=== PATIENT | female | born 1975 | race Caucasian/White ===

== ENCOUNTER 2017-02-28 12:14 | Inpatient (IN) | payer SELFPAY ==
[2017-02-28] MEDS ORDERED: LIDOCAINE HCL/PF 1% 30 ML VIAL SUBCUT PRN ×3 (13:00→20:59)
[2017-02-28] MEDS ORDERED: FENTANYL 100 MCG/2 ML VIAL IV PRN ×5 (13:00→20:59)
[2017-02-28] MEDS ORDERED: FENTANYL 100 MCG/2 ML VIAL IV ONE ×3 (13:00→20:59)
[2017-02-28] MEDS ORDERED: ONDANSETRON HCL 4 MG/2 ML VIAL IV PRN ×3 (13:00→20:59)
[2017-02-28] MEDS ORDERED: HOME MEDICATION LIST NEEDED 1 EA EACH MC ONE (13:00)
[2017-02-28] MEDS ORDERED: MISOPROSTOL 200 MCG TABLET PO PRN ×6 (13:00→20:59)
[2017-02-28] MEDS ORDERED: TERBUTALINE SULFATE 1 MG/ML VIAL SQ PRN ×3 (13:00→20:59)
[2017-02-28] MEDS: MISOPROSTOL 25 MCG CAPSULE VAG SCH ×2 (14:00→17:07)
[2017-02-28] MEDS ORDERED: PENICILLIN G POTASSIUM 5 MMU in NORMAL SALINE 100 ML IV ONE ×3 (14:00→20:59)
[2017-02-28] MEDS: PENICILLIN POTASSIUM IV ONE ×2 (14:09→14:10)
[2017-02-28] MEDS: NORMAL SALINE MINI IV ONE ×2 (14:09→14:10)
[2017-02-28] MEDS ORDERED: LACTATED RINGERS 1,000 ML IV ONE (14:16)
--- NOTE | 2017-02-28 14:18 | PROGRESS NOTE:Antepartum ---
Assessment and Plan - Date of Encounter Date of Encounter: 02/28/17 (1) Supervision of high risk elderly primigravida in third trimester Status: Acute Assessment and plan: Pt with excellent blood sugars at home. Today's pending. I do not anticipate glucose issues. BP at baseline so no signs of preeclampsia. Cervix unfavorable and CAT I strip so will pursue Cytotec induction. Current Visit: Yes (2) Gestational diabetes Status: Acute Current Visit: Yes (3) Uterine fibroids affecting in third trimester Status: Acute Current Visit: Yes - Time Spent With Patient Total time spent with greater than 50% in coordination of care (as documented) at patient's floor/unit and/or counseling patient: OWNER MANAGER: Antepartum PN Subj - Subjective Interval history: 41 yo here at 39 weeks for cytotec induction due to gestational DM controlled with single pm dose of Glyburide. She has been followed closely with perinatology due multiple risk factors for IUGR including significant fibroids making growth assessment impossible on routine U/S equipment so followed at [facility] perinatology. Risk Factors include AMA, Multiple fibroids, Maternal smoking and living at 9000 feet. continued to plot at 11-14% and no evidence of IUGR. They did not forsee fibroids interfering with mode of delivery. She is here today for induction. See dictated H/P. Patient reports: appetite normal, voiding normally, pain well controlled Antepartum ROS: movement normal, no vaginal bleeding, no contractions, no loss of fluid, no abdominal pain, no headache, no shortness of breath, no swelling, no visual changes OWNER MANAGER: Antepartum PN Obj Exam - Latest Vital Signs and I&O Latest Vital Signs/I&O: Intake & Output 02/27/17 02/28/17 02/28/17 17:59 05:59 17:59 Weight 101.605 kg - Exam Heart Monitor: category I Lungs: Bilateral: normal Heart Rhythm: Present: regular Cervical Dilatation Degree: 1 Cervical Effacement Percentage: 50 Station: -2
[2017-02-28] MEDS ORDERED: LACTATED RINGERS 1,000 ML IV SCH ×5 (15:00→20:59)
[2017-02-28 15:02] LABS: HEMATOCRIT 40.6 % (36.0-48.0); HEMOGLOBIN 13.9 g/dL (12.0-16.0); RED BLOOD COUNT 4.55 X 10^6uL (4.20-6.10); WHITE BLOOD COUNT 8.2 X 10^3uL (3.9-10.7)
[2017-02-28 15:03] LABS: BASOPHILS 0.4 % (0.0-2.0); EOSINOPHILS# 0.1 X 10^3uL (0.0-0.4); LYMPHOCYTES 14.5 % (20.0-40.0); LYMPHOCYTES# 1.2 X 10^3uL (0.8-3.8); MEAN CORPUS. HGB CONCENTRATION 34.2 g/dL (32.0-36.0); MEAN CORPUSCULAR HEMOGLOBIN 30.6 pg (29.0-35.0); MEAN PLATELET VOLUME 9.3 fL (7.4-10.4); MONOCYTES 6.3 % (2.0-10.0); MONOCYTES# 0.5 X 10^3uL (0.2-1.0); NEUTROPHILS 77.8 % (54.0-75.0); NEUTROPHILS# 6.4 X 10^3uL (2.6-6.7); PLATELET COUNT 151 X 10^3uL (130-440); RED CELL DISTRIBUTION WIDTH 13.5 % (11.5-14.5)
[2017-02-28 15:55] LABS: ABO GROUP TYPE B; ANTIBODY SCREEN NEGATIVE; RH TYPE POSITIVE
[2017-02-28 16:02] LABS: ALBUMIN 3.6 g/dL (3.5-5.0); ALKALINE PHOSPHATASE 132 U/L (38-126); ALT 25 U/L (9-52); AST 18 U/L (14-36); BILIRUBIN, TOTAL 0.4 mg/dL (0.2-1.3); BLOOD UREA NITROGEN 9 mg/dL (7-17); CALCIUM 8.9 mg/dL (8.4-10.2); CHLORIDE 109 mmol/L (98-107); EST GLOMERULAR FILTRATION RATE > 60 mL/min; GLUCOSE 76 mg/dL (70-100); POTASSIUM 3.9 mmol/L (3.5-5.1); SODIUM 138 mmol/L (137-145); TOTAL PROTEIN 7.3 g/dL (6.3-8.2)
[2017-02-28] MEDS ORDERED: FAMOTIDINE 20 MG TABLET ONE (17:51)
[2017-02-28] MEDS ORDERED: FAMOTIDINE IN SALINE, ISO-OSM 20 MG/50 ML PIGGYBACK IV ONE (17:52)
[2017-02-28] MEDS ORDERED: PENICILLIN G POTASSIUM 2.5 MMU in NORMAL SALINE 100 ML IV SCH ×2 (18:00→22:00)
[2017-02-28] MEDS ORDERED: EPHEDrine SULFATE 50 MG/ML VIAL ONE (18:02)
[2017-02-28] MEDS ORDERED: OXYTOCIN 10 UNITS/ML VIAL ONE ×2 (18:02→19:09)
[2017-02-28] MEDS ORDERED: PHENYLEPHRINE HCL 10,000 MCG/ML VIAL ONE (18:02)
[2017-02-28] MEDS ORDERED: NORMAL SALINE FLUSH 20 ML ONE (18:02)
[2017-02-28] MEDS ORDERED: FENTANYL 100 MCG/2 ML VIAL ONE (18:03)
[2017-02-28] MEDS ORDERED: ceFAZolin 1 GM/10 ML VIAL ONE (18:03)
[2017-02-28] MEDS ORDERED: MORPHINE SULFATE/PF 10 MG/10 ML VIAL ONE (18:03)
[2017-02-28] MEDS ORDERED: HOME MEDICATION LIST NEEDED 1 EA EACH MISC ONE ×2 (18:30→20:59)
[2017-02-28] MEDS ORDERED: NALOXONE HCL 0.4 MG/ML VIAL IV PRN ×6 (18:30→20:59)
[2017-02-28] MEDS ORDERED: NALBUPHINE HCL 10 MG/ML AMP IV PRN ×2 (18:30→20:59)
[2017-02-28] MEDS ORDERED: DIPHENHYDRAMINE 50 MG/ML VIAL IV PRN ×2 (18:30→20:59)
[2017-02-28] MEDS ORDERED: MORPHINE SULFATE 10 MG/ML SYR IV PRN ×2 (18:30→20:59)
[2017-02-28] MEDS ORDERED: DIPHENHYDRAMINE 25 MG CAPSULE PO PRN ×2 (18:30→20:59)
[2017-02-28] MEDS ORDERED: KETOROLAC TROMETHAMINE 30 MG/ML VIAL IV PRN ×2 (18:30→20:59)
[2017-02-28] MEDS ORDERED: MISOPROSTOL 25 MCG CAPSULE VAGINALLY SCH (19:00)
[2017-02-28] MEDS ORDERED: ONDANSETRON HCL 4 MG/2 ML VIAL ONE (19:06)
--- NOTE | 2017-02-28 20:12 | OPERATIVE NOTE: C-Section ---
- Operative Report Date of procedure: 02/28/17 Pre-Op Diagnosis: Non reasurring FHT's, Gest DM, AMA, TOB USE, Fibroids Post-op diagnosis: same Procedure: LTCS with myomectomy Anesthesia Type: Spinal Start Up Specialist: CLARISSA HARTMAN Estimated Blood Loss: 700 Pathology: sent Sponge and instrument counts: correct X-ray taken: No Estimated Gestational Age (weeks): 39 Delivery Presentation: vertex Heart Monitor: category III Intrapartum Events: extend. bradycardia (70-90 on doppler for 9 min with occasional increase to 110-120 for 3 min then back to 70 ) Amniotic Fluid: meconium, AROM (while placing FSE) Cord Vessel Description: 3 Vessels Nuchal Cord # of Loops: 0 (at shoulder) Cord clamped: Yes Cord blood obtained: Yes at 1 minute: 7 at 5 minutes: 9 Gender: Female arterial ph: 7.2 venous ph: 7.2 Delivery Complications: Present: other (4 cm fibroid in Lower uterine segment removed) Narrative: 41 yo was here for elective induction She started with CAT I strip. She received her first dose of Cytotec and had favorable change to 2 cm and 80%. I had just placed her second dose of Cytotec when I noted a little bit of bleeding on my glove. It was not significant. Within about 5 minutes she had a significant bradycardia variable down into the 90s for 2 minutes. She was repositioned and This recovered. She had a second variable down to the 90s again. This only lasted about a minute. Heart tones recovered 130-150 with good variability. And within 3 minutes she had a deceleration that went down to the 90s and we lost heart tones on the monitor. We could Doppler them between 60s and 90s. I placed a scalp electrode which was very difficult as she was only 2 cm she was still very high. We had heart tones that came back 90s-120s and this was after a period of approximately 9 minutes. Again she had a second long prolonged deceleration into the 90s and was subsequently taken to the operating room. By the time he got to the OR where she recovered heart rate was 120s-130s with good variability. She did have some variables but they all lasted about a minute or less with good recovery. In the operating room she received a spinal anesthetic. heart tones were as mentioned above. They did not drop with spinal anesthesia and she did not have any episodes of hypotension. Timeout was taken correctly identifying the patient, her allergies (none) and procedure. A Nielsen catheter was placed. She was prepped and draped in sterile fashion. The internal scalp electrode was discontinued. Her was brought into the room. A Pfannenstiel skin incision was made. This was taken down to the fascia with a combination of cautery and blunt technique. It was extended using blunt technique to the apices. The fascia was then entered in the midline sharply approximately 3 cm. It was extended in a blunt technique towards the apices. The rectus muscles were also entered bluntly and along their diaphysis. The Peritoneum was then entered bluntly. An Esa O-Ring was introduced into the abdominal wound for exposure. The uterus was in the midline position with fibroids noted. There is approximately a 4-5 cm fibroid located along the left lower uterine segment just above the incision. The uterus was entered with a midline incision that was then extended caudally and cephalad using muscle pulling technique. The infant was in a vertex position. Her head was lifted from the pelvis and then she was delivered without difficulty. The cord was clamped twice and the infant was handed off to the receipt and report clerk who was in attendance at the delivery. Cord gas segment was taken. Gases were 7.2 and 7.22. Cord blood was also taken. The placenta was then delivered via manual massage. A moist lap was used to evacuate the contents of the uterus. Salazar clamps were then taken to obtain temporary hemostasis. The lower fibroid was then removed by Dr. Hartman. Hemostasis was achieved with 2 [id number] 0 chromic sutures. The uterine incision was then closed with a running locking 0 chromic suture. A second umbricating suture that also included the myomectomy site. There was only scant bleeding from the area of the myomectomy and the wound was reinforced with a figure-of- eight suture. Excellent hemostasis resulted. The abdomen was then irrigated with warm saline. The wound was inspected again and there was no evidence of bleeding. I palpated 5 other uterine fibroids on the anterior superior and posterior segment. These were all serosal and did not interfere with our procedure. The Shelley O ring was removed. The peritoneum and rectus muscles were closed with 5 simple interrupted 0 chromic sutures. The fascia was closed with a 2-0 PDS for approximately 4 sutures when I realized that was not the right suture. I then stopped in continue the rest of the closure with an 0 PDS suture in a running nonlocking fashion. The fascia was inspected and was free of defects. The subcutaneous tissue was again irrigated. The skin was closed with a running 4-0 Monocryl suture in a subcuticular fashion. The wound was reinforced with tincture of benzoin and Steri-Strips. A pressure dressing consisting of Telfa, 2 ABDs, and Hypafix tape was then applied. All counts were correct. Patient was taken to the recovery room in excellent condition.
[2017-02-28] MEDS ORDERED: LANOLIN CREAM 1 APP/7 GM TUBE TOPICAL PRN (20:59)
[2017-02-28] MEDS ORDERED: SIMETHICONE CHEW 80 MG TABLET PO PRN (20:59)
[2017-02-28] MEDS ORDERED: MAGNESIUM HYDROXIDE 30 ML UDC PO PRN (21:00)
[2017-03-01] MEDS: KETOROLAC TROMETHAMINE 30 MG/ML VIAL IV PRN ×3 (00:29→12:32)
[2017-03-01] MEDS: LACTATED RINGERS 1,000 ML IV SCH ×2 (00:30→09:15)
[2017-03-01] MEDS: MISOPROSTOL 25 MCG CAPSULE VAGINALLY SCH ×3 (00:35→06:52)
[2017-03-01] MEDS: ACETAMINOPHEN 1,000 MG/100 ML VIAL IV SCH ×3 (00:35→10:07)
[2017-03-01] MEDS: DOCUSATE SODIUM 100 MG CAPSULE PO SCH ×3 (00:35→21:37)
[2017-03-01] MEDS: PENICILLIN G POTASSIUM 2.5 MMU in NORMAL SALINE 100 ML IV SCH ×2 (03:53→06:52)
[2017-03-01 07:41] LABS: HEMATOCRIT 39.2 % (36.0-48.0); HEMOGLOBIN 13.1 g/dL (12.0-16.0); RED BLOOD COUNT 4.38 X 10^6uL (4.20-6.10); WHITE BLOOD COUNT 9.9 X 10^3uL (3.9-10.7)
[2017-03-01 07:42] LABS: BASOPHILS 0.4 % (0.0-2.0); EOSINOPHILS 1.3 % (0.0-6.0); EOSINOPHILS# 0.1 X 10^3uL (0.0-0.4); LYMPHOCYTES 9.8 % (20.0-40.0); MEAN CORPUS. HGB CONCENTRATION 33.4 g/dL (32.0-36.0); MONOCYTES 5.8 % (2.0-10.0); MONOCYTES# 0.6 X 10^3uL (0.2-1.0); NEUTROPHILS 82.7 % (54.0-75.0); NEUTROPHILS# 8.2 X 10^3uL (2.6-6.7); RED CELL DISTRIBUTION WIDTH 13.6 % (11.5-14.5)
--- NOTE | 2017-03-01 08:24 | PROGRESS NOTE: GYN Post-op ---
Assessment and Plan - Date of Encounter Date of Encounter: 03/01/17 (1) Supervision of high risk elderly primigravida in third trimester Status: Acute Assessment and plan: POD # LTCS for prolonged bradycardia. Doing well. Routine LTCS care. Post-op H/H 13.1/39. Continue IVF x 1 ltr. Today will remove Nielsen and ambulate. Shower when steady. Mom bottle feeding. Current Visit: Yes (2) Gestational diabetes Status: Acute Assessment and plan: Pt with excellent blood sugars at home. 91 on admit. Controlled with diet and single dose of Glyburide 1.25 mg at pm. She had a normal A1c at 28 weeks so expect resolution. D/C glyburide. Recheck FBS in am Current Visit: Yes (3) Uterine fibroids affecting in third trimester Status: Acute Current Visit: Yes - Time Spent With Patient Total time spent with greater than 50% in coordination of care (as documented) at patient's floor/unit and/or counseling patient: HOME AIDE: Post-op Note Subjective Interval History: 41 yo here at 39 weeks for cytotec induction due to gestational DM controlled with single pm dose of Glyburide. She has been followed closely with perinatology due multiple risk factors for IUGR including significant fibroids making growth assessment impossible on routine U/S equipment so followed at [facility] perinatology. Risk Factors include AMA, Multiple fibroids, Maternal smoking and living at 9000 feet. continued to plot at 11-14% and no evidence of IUGR. They did not forsee fibroids interfering with mode of delivery. Baby had significant bradycardia at 2-3 cm so delivered via LTCS. Postoperatively, Mom doing well. Pain controlled. Mom is formula feeding. No flatus yet. Tolerating reg diet w/o nausea. Post-op Day: 1 Patient reports: appetite normal, pain well controlled, no nausea, no flatus HOME AIDE: Post-op Note Objective - Latest Vital Signs and I&O Latest Vital Signs/I&O: Vital Signs Temp 36.0 C L 03/01/17 07:57 Pulse 78 03/01/17 07:57 Resp 20 03/01/17 07:57 BP 117/70 03/01/17 07:57 Pulse Ox 92 03/01/17 07:57 Intake & Output 02/28/17 03/01/17 03/01/17 17:59 05:59 17:59 Intake Total 4135 Output Total 1050 Balance 3085 Weight 101.605 kg 101.605 kg Intake: IV 2750 Right Forearm 2750 Oral 1385 Output: Urine 1050 Uretheral (Nielsen) 400 Other: Urine Appearance Clear Clear Clear Urine Color Yellow Yellow Yellow Straw Uretheral (Nielsen) Yellow Voiding Method Toilet Indwelling Catheter Indwelling Catheter - Exam Lungs: Bilateral: normal Heart Rhythm: Present: regular Abdomen: Present: soft Incision: Present: dressed (dry) - Lab Labs: Laboratory Last Values WBC 9.9 X 10^3uL (3.9-10.7) 03/01/17 07:15 RBC 4.38 X 10^6uL (4.20-6.10) 03/01/17 07:15 Hgb 13.1 g/dL (12.0-16.0) 03/01/17 07:15 Hct 39.2 % (36.0-48.0) 03/01/17 07:15 MCV 90.0 fL (80.0-100.0) 03/01/17 07:15 MCH 30.0 pg (29.0-35.0) 03/01/17 07:15 MCHC 33.4 g/dL (32.0-36.0) 03/01/17 07:15 RDW 13.6 % (11.5-14.5) 03/01/17 07:15 Plt Count 108 X 10^3uL (130-440) L 03/01/17 07:15 MPV 9.0 fL (7.4-10.4) 03/01/17 07:15 Neutrophils % 82.7 % (54.0-75.0) H 03/01/17 07:15 Lymphocytes % 9.8 % (20.0-40.0) L 03/01/17 07:15 Eosinophils % 1.3 % (0.0-6.0) 03/01/17 07:15 Basophils % 0.4 % (0.0-2.0) 03/01/17 07:15 Neutrophils # 8.2 X 10^3uL (2.6-6.7) H 03/01/17 07:15 Lymphocytes # 1.0 X 10^3uL (0.8-3.8) 03/01/17 07:15 Monocytes 5.8 % (2.0-10.0) 03/01/17 07:15 Monocytes # 0.6 X 10^3uL (0.2-1.0) 03/01/17 07:15 Eosinophils # 0.1 X 10^3uL (0.0-0.4) 03/01/17 07:15 Basophils # 0.0 X 10^3uL (0.0-0.1) 03/01/17 07:15 Sodium 138 mmol/L (137-145) 02/28/17 13:30 Potassium 3.9 mmol/L (3.5-5.1) 02/28/17 13:30 Chloride 109 mmol/L (98-107) H 02/28/17 13:30 Carbon Dioxide 19 mmol/L (22-30) L 02/28/17 13:30 BUN 9 mg/dL (7-17) 02/28/17 13:30 Creatinine 0.5 mg/dL (0.5-1.0) 02/28/17 13:30 GFR Calculation > 60 mL/min 02/28/17 13:30 Glucose 76 mg/dL (70-100) 02/28/17 13:30 Calcium 8.9 mg/dL (8.4-10.2) 02/28/17 13:30 Total Bilirubin 0.4 mg/dL (0.2-1.3) 02/28/17 13:30 AST 18 U/L (14-36) 02/28/17 13:30 ALT 25 U/L (9-52) 02/28/17 13:30 Alkaline Phosphatase 132 U/L (38-126) H 02/28/17 13:30 Total Protein 7.3 g/dL (6.3-8.2) 02/28/17 13:30 Albumin 3.6 g/dL (3.5-5.0) 02/28/17 13:30 Albumin/Globulin Ratio 1.0 02/28/17 13:30 ABO Group Type b 02/28/17 13:30 Rh Factor Positive 02/28/17 13:30 Antibody Screen Negative 02/28/17 13:30 (2) Gestational diabetes Qualifiers: Gestational diabetes mellitus control: oral hypoglycemic-controlled Trimester : third trimester Qualified Code(s): O24.415 - Gestational diabetes mellitus in , controlled by oral hypoglycemic drugs
[2017-03-01 10:04] VITALS: RESP 18
[2017-03-01] MEDS ORDERED: ACETAMINOPHEN 1,000 MG/100 ML VIAL IV SCH (12:30)
[2017-03-01] MEDS: IBUPROFEN 600 MG TABLET PO PRN (18:01)
[2017-03-02] MEDS: IBUPROFEN 600 MG TABLET PO PRN ×3 (00:37→11:54)
[2017-03-02] MEDS: DOCUSATE SODIUM 100 MG CAPSULE PO SCH (09:02)
[2017-03-02 09:26] VITALS: BP 141/81; PULSE 72; TEMP 97; O2SAT 92
--- NOTE | 2017-03-02 09:34 | DC SUMMARY: Obstetrical/GYN ---
Discharge Summary: Surg/OB Provider: Date of Admission: 02/28/17 Admitting Provider: CRISTNIA MC MD Attending Provider: CRISTINA MC MD Discharging Provider: CLARISSA KEMP MD Primary Care Provider: Discharge Date: 03/02/17 Hospital Course: Ms. CONWAY is a 41 year old female here at term for Cytotec induction due to gestational DM controlled with single pm dose of Glyburide. She has been followed closely with perinatology due multiple risk factors for IUGR including significant fibroids making growth assessment impossible on routine U/ S equipment so followed at [facility] perinatology. Risk Factors include AMA , Multiple fibroids, Maternal smoking and living at 9000 feet. Infant continued to plot at 11-14% and no evidence of IUGR. They did not foresee fibroids interfering with mode of delivery. She was begun on Cytotec for cervical ripening and after the second dose had prolonged bradycardia. She was taken emergently for section, the heart rate returned to baseline but with recurrent variables. Her surgery was complicated by a 3 cm leiomyoma near the uterine incision which had to be removed to allow adequate closure of the hysterotomy. Her post course was unremarkable and she is discharged to home on the second post operative day in good condition. Discharge - Patient/Caregiver Discharge Instructions Activity Level: Pelvic and abdominal rest Diet: Regular Additional Instructions: Discharge Instructions for Dr. Mc 1. Please make a follow up appointment to see me. 2. Contact me in [place] at [phone] or Jennifer Ramirez [phone]. 3. You should use Ibuprofen 600 mg, three times a day for pain. If that is inadequate you may be given a narcotic prescription. Narcotics are very constipating and you should use fiber or Colace to prevent constipation if taking them regularly. You should not drive a car while taking narcotics. 4. Take your vitamins as long as you breast feed or for 6 weeks after delivery. 5. If you are not , wear a jog bra or tight bra for 2 weeks to prevent milk production. Wear this both night and day. If you are having pain , use ice packs and try not to stimulate your nipples. You may also use Ibuprofen and Tylenol. 6. If you are having troubles with breast feeding including pain or sore nipples please call me. Always remind physicians that you are breast feeding if you receive a new medication prescription. 7. To help prevent complications with : a. Ensure good position and latch b. Ensure feeding on demand c. Empty breasts fully d. Use hand expression to help relieve fullness e. Expose breast engorgement to warm water by shower or basin f. Call if unrelieved or if you have questions Thayer : Haleigh Hermelindo, ___[phone] Acosta Lewis, __[phone]___ 8. Bleeding is normal for 2-6 weeks after delivery. It may be heavier when you exercise or do more activity. If it seems heavy or you are passing clots please call me. 9. Use Pads only for bleeding. Do not use Tampons. 10. If I request you take iron to help build your blood counts back up you can get this over the counter. The most common form is Iron Sulfate 325 mg. Take one daily. It is best taken on an empty stomach with orange juice. 11. Do not have intercourse until 4-6 weeks after you delivery or until you quit bleeding. 12. You may shower or take sitz baths in 3 inches of warm water but do not soak in hot tubs or take deep baths until you quit bleeding (about 4-6 weeks). 13. If you had a , do not lift anything heavier than your baby for 2 weeks, and do not drive for 2 weeks. You may shower. You do not need to wear a bandage. A small amount of drainage from the incision is normal but if it seems excessive or the wound is red or painful please call me immediately. 14. Please dont hesitate to call with any questions. Follow up: CRISTINA MC MD [Primary Care Provider] - 7 Days Overall discharge status: stable Home Medications: Ibuprofen [Motrin] 2 - 3 tab PO Q4H PRN #30 tablet PRN Reason: pain oxyCODONE HCL/ACETAMINOPHEN [Percocet 5-325 mg Tablet] 1 each PO Q4H PRN #20 tablet PRN Reason: Pain, Severe Care Plan Goals: able to care for self and baby Disposition: HOME, SELF-CARE Obstetrical/LAP HAND TOOL Discharge Exam - Latest Vital Signs and I&O Latest Vital Signs/I&O: Vital Signs Temp 36.1 C L 03/02/17 09:05 Pulse 72 03/02/17 09:05 Resp 18 03/02/17 09:05 BP 141/81 03/02/17 09:05 Pulse Ox 92 03/02/17 09:05 Intake & Output 03/01/17 03/02/17 03/02/17 17:59 05:59 17:59 Intake Total 1999 900 Output Total 2400 Balance 1999 -1499 Intake: IV 2000 Lr 1000 ml Bag 1,000 ml @ 2000 125 mls/hr IV CONT LYNNE Rx#:[id number] Oral 900 Output: Urine 2400 Other: Urine Appearance Clear Clear Urine Color Yellow Yellow Uretheral (Nielsen) Light Teena Voiding Method Indwelling Catheter Toilet Toilet # Voids 2 - Exam Lungs: Bilateral: normal Heart Rhythm: Present: regular Extremities: Absent: tenderness Abdomen: Present: soft. Absent: tenderness Incision: Present: well approximated. Absent: erythematous Uterus: Present: firm, non tender Discharge Summary Data - Medication History Medication History: Home Medications Glyburide 1.25 mg PO HS 02/28/17 Vit/Iron Fumarate/FA [ Tablet] 1 tab PO DAILY 02/28/17 Inpatient Medications 02/28/17 20:59 Lactated Ringers [Lr 1000 ml Bag] 1,000 ml IV CONT Lanolin Cream [Lansinoh] 1 santos TOPICAL PRN PRN Misoprostol [Cytotec] 600 mcg PO ONCE PRN Misoprostol [Cytotec] 800 mcg PO ONCE PRN Ondansetron HCl [Zofran] 4 mg IV Q4H PRN Simethicone Chew [Mylicon] 80 mg PO Q6H PRN oxyCODONE HCL IR [Oxy Ir] 5 mg PO Q3H PRN 02/28/17 21:00 Docusate Sodium [Colace] 100 mg PO BID Magnesium Hydroxide [Milk of Magnesia] 30 ml PO DAILY PRN 03/01/17 17:21 Ibuprofen [Motrin] 600 mg PO Q6H PRN Procedures and tests throughout hospitalization: Completed Lab Orders 02/28/17 13:30 ABO GROUP [HEM] Urgent ANTIBODY SCREEN [HEM] Urgent CBC AUTO DIF, MDIF/RMOR IF IND [HEM] Urgent RH TYPE [HEM] Urgent cmp [COMPREHENSIVE METABOLIC PANEL] [CHEM] Urgent 03/01/17 07:15 CBC AUTO DIF, MDIF/RMOR IF IND [HEM] AMDRAW Pending Orders 02/24/17 08:30 Resuscitation Status Routine 02/28/17 13:00 Admit: Inpatient Routine Epidural on demand/Notify DIRECTOR PRISON PER PROTOCOL Insert Nielsen Catheter PRN May use Jacuzzi PRN NLC Maternal Vital Signs PER PROTOCOL Notify Physician . 02/28/17 18:30 Maxwell hugger if temp <34 C PRN Did pt have a spinal/epidural? . Monitor End Tidal CO2 CONTINUOUS Narcan @ bedside x24h after sp .x24hrs Notify Anesthesia . Titrate Oxygen TITRATE B/W 90-95% Vital Signs Q1HX12,Q2H Warm blankets if temp<36 C PRN 02/28/17 20:00 Transfer to Floor PER PROTOCOL 02/28/17 20:59 Admit: Inpatient Routine Incentive Spirometry Q4H Intake and Output QSHIFT I&O Notify Physician PRN Post Assessment PER PROTOCOL Vital Signs ROUTINE VITALS (Q4H) Lactated Ringers [Lr 1000 ml Bag] 1,000 ml IV CONT Lanolin Cream [Lansinoh] 1 santos TOPICAL PRN PRN Misoprostol [Cytotec] 600 mcg PO ONCE PRN Misoprostol [Cytotec] 800 mcg PO ONCE PRN Ondansetron HCl [Zofran] 4 mg IV Q4H PRN Simethicone Chew [Mylicon] 80 mg PO Q6H PRN oxyCODONE HCL IR [Oxy Ir] 5 mg PO Q3H PRN 02/28/17 21:00 Docusate Sodium [Colace] 100 mg PO BID Magnesium Hydroxide [Milk of Magnesia] 30 ml PO DAILY PRN 03/01/17 09:00 May shower 1900 03/01/17 17:21 Ibuprofen [Motrin] 600 mg PO Q6H PRN 03/01/17 19:57 Activity: Ambulate with Assist TID 03/01/17 Breakfast DIET [Regular] [DIET] 03/01/17 Dinner Special Meal (NLC)
== END 2017-03-02 17:00 | disposition home or self-care (01) | DRG 766 ==
LOC: NLCPRO 12:14 → NLC 12:19
PROVIDERS: ADMIT Family Medicine; ATTEND Family Medicine
PROC: 0UB90ZZ Excision of Uterus, Open Approach (ICD-10-PCS; principal; 2017-02-28)
PROC: 10D00Z1 Extraction of Products of Conception, Low, Open Approach (ICD-10-PCS; principal; 2017-02-28)
DX: O76 Abnormality in fetal heart rate and rhythm complicating labor and delivery (principal); O99.334 Smoking (tobacco) complicating childbirth; O24.425 Gestational diabetes mellitus in childbirth, controlled by oral hypoglycemic drugs; O34.13 Maternal care for benign tumor of corpus uteri, third trimester; O09.513 Supervision of elderly primigravida, third trimester; D25.9 Leiomyoma of uterus, unspecified; Z3A.39 39 weeks gestation of pregnancy; Z37.0 Single live birth
CPT/HCPCS: 36415; 80053; 85025; 86850; 86900; 86901; C1781; J0690; J1170; J1885; J2370; J2405; J2590; J3010; J7120